=== PATIENT | female | born 2000 | race Caucasian/White ===

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

== ENCOUNTER 2022-05-09 16:51 | Emergency (ER) | payer BC ==
[2022-05-09] MEDS ORDERED: Ondansetron 4 MG/2 ML SDV IVPUSH ONE ×2 (17:12→20:45)
[2022-05-09] MEDS ORDERED: Sodium Chloride 0.9% 1,000 ML IV SCH (17:15)
[2022-05-09] MEDS ORDERED: HYDROmorphone 0.5 MG/0.5 ML Syringe IVPUSH ONE (17:49)
[2022-05-09] MEDS: Sodium Chloride 0.9% 10 ML Syringe FLUSH PRN ×2 (17:57→19:28)
[2022-05-09 18:15] LABS: ESTIMATED GFR 127 mL/min (>60)
[2022-05-09] MEDS ORDERED: Morphine 2 MG/ML SYRINGE IVPUSH ONE (18:35)
[2022-05-09] MEDS ORDERED: Sodium Chloride 0.9% 10 ML SDV FLUSH ONE (19:04)
[2022-05-09] MEDS ORDERED: Iopamidol 755 Mg/ML 100 ML Bottle IVPUSH ONE (19:04)
[2022-05-09] MEDS ORDERED: fentaNYL 100 MCG/2 ML SDV IVPUSH ONE (19:49)
[2022-05-09] MEDS ORDERED: Ketorolac 30 MG/ML SDV IVPUSH ONE (19:49)
[2022-05-09] MEDS ORDERED: Acetaminophen/oxyCODONE 325-5 MG Tab PO ONE (22:33)
== END 2022-05-09 22:35 | disposition home or self-care (01) ==
LOC: JD.ED 16:51
DX: R10.2 Pelvic and perineal pain (principal); Z88.0 Allergy status to penicillin
CPT/HCPCS: 36415; 74177; 76830; 80053; 81001; 83690; 83735; 84702; 85025; 86140; 87086; 96361; 96374; 96375; 96376; 99284; A9270; J1170; J1885; J2270; J2405; J3010; J3490; J7030; Q9967

== ENCOUNTER 2022-06-13 14:22 | Emergency (ER) | payer BC ==
[2022-06-13] MEDS ORDERED: HYDROmorphone 0.5 MG/0.5 ML Syringe IVPUSH ONE (14:48)
[2022-06-13] MEDS ORDERED: Dexamethasone 10 MG/ML SDV IVPUSH ONE (14:48)
[2022-06-13] MEDS ORDERED: Clindamycin Phosphate in D5W 900 MG in Premix Bag 1 BAG IV ONE ×2 (14:48)
[2022-06-13] MEDS ORDERED: Ondansetron 4 MG/2 ML SDV IVPUSH ONE (15:05)
[2022-06-13] MEDS: Sodium Chloride 0.9% 10 ML Syringe FLUSH PRN ×2 (15:08→16:09)
[2022-06-13] MEDS ORDERED: Sodium Chloride 0.9% 1,000 ML IV ONE ×2 (15:11→15:12)
[2022-06-13] MEDS ORDERED: diphenhydrAMINE 50 MG/ML SDV IVPUSH ONE (15:20)
[2022-06-13] MEDS ORDERED: LORazepam 2 MG/ML SDV IVPUSH ONE (15:29)
[2022-06-13] MEDS ORDERED: Iopamidol 612 MG/ML 100 ML Bottle IVPUSH ONE (16:09)
[2022-06-13] MEDS ORDERED: Ketorolac 30 MG/ML SDV IVPUSH ONE (18:20)
== END 2022-06-13 18:53 | disposition home or self-care (01) ==
LOC: JD.ED 14:22
DX: L03.211 Cellulitis of face (principal); K04.7 Periapical abscess without sinus; J01.20 Acute ethmoidal sinusitis, unspecified; Z88.0 Allergy status to penicillin
CPT/HCPCS: 36415; 70487; 80053; 85025; 86140; 93005; 96365; 96375; 99284; J1100; J1170; J1200; J1885; J2405; J3490; J7030; Q9967; 93010

== ENCOUNTER 2022-09-24 09:57 | Emergency (ER) | payer BC ==
[2022-09-24] MEDS ORDERED: Sodium Chloride 0.9% 10 ML Syringe FLUSH PRN (10:19)
[2022-09-24] MEDS ORDERED: Ondansetron 4 MG/2 ML SDV IVPUSH ONE (10:20)
[2022-09-24] MEDS ORDERED: Sodium Chloride 0.9% 1,000 ML IV STA (10:20)
[2022-09-24] MEDS ORDERED: HYDROmorphone 0.5 MG/0.5 ML Syringe IVPUSH ONE (10:20)
[2022-09-24 11:45] LABS: BASOPHILS ABSOLUTE AUTO 0.03 K/mm3 (0.01-0.08); BASOPHILS PERCENT AUTO 0.3 % (0.1-1.2); EOSINOPHILS ABSOLUTE AUTO 0.13 K/mm3 (0.04-0.36); EOSINOPHILS PERCENT AUTO 1.2 (0.7-5.8); HEMATOCRIT 39.8 % (34.1-44.9); HEMOGLOBIN 13.7 gm/dl (11.2-15.7); IMMATURE GRAN ABSOLUTE AUTO 0.04 K/mm3 (0.00-0.10); IMMATURE GRAN PERCENT AUTO 0.4 % (<=1.0); LYMPHOCYTES ABSOLUTE AUTO 2.49 K/mm3 (1.18-3.74); MEAN CORPUSCULAR HEMOGLOBIN 27.8 pg (25.6-32.2); MEAN CORPUSCULAR HGB CONC 34.4 g/dl (32.2-35.5); MEAN CORPUSCULAR VOLUME 80.9 fl (79.4-94.8); MEAN PLATELET VOLUME 10.4 fl (9.4-12.3); MONOCYTES ABSOLUTE AUTO 0.67 K/mm3 (0.24-0.36); MONOCYTES PERCENT AUTO 6.2 % (4.7-12.5); NEUTROPHILS ABSOLUTE AUTO 7.48 K/mm3 (1.56-6.13); NEUTROPHILS PERCENT AUTO 68.9 % (34.0-71.1); PLATELET COUNT,PLT 340 K/mm3 (182-369); RED BLOOD CELL COUNT 4.92 M/mm3 (3.98-5.22); WHITE BLOOD CELL COUNT,WBC 10.84 K/mm3 (3.98-10.04)
[2022-09-24 12:31] LABS: A/G RATIO 0.9 (1-2); ALBUMIN 3.6 g/dl (3.4-5.0); ANION GAP 12.9 (5-15); BILIRUBIN TOTAL 0.6 mg/dL (0.2-1.0); BUN/CREATININE RATIO 15.7 (14-18); C-REACTIVE PROTEIN 1.2 mg/dL (<1.0); CALCIUM 9.3 mg/dL (8.5-10.1); CREATININE 0.7 mg/dL (0.55-1.02); EST CRCL DRUG DOSING (CG) 124.67 mL/min; POTASSIUM,K 3.9 mEq/L (3.5-5.1); PROTEIN TOTAL,TP 7.8 g/dl (6.4-8.2)
[2022-09-24 13:18] LABS: APPEARANCE,URINE CLEAR (Clear); BILIRUBIN,URINE NEGATIVE (Negative); COLOR,URINE YELLOW (Yellow); GLUCOSE,URINE NEGATIVE (Negative); KETONES,URINE NEGATIVE (Negative); LEUKOCYTE ESTERASE,URINE TRACE (Negative); NITRITE,URINE NEGATIVE (Negative); OCCULT BLOOD,URINE NEGATIVE (Negative); PROTEIN,URINE NEGATIVE (Negative); UROBILINOGEN,URINE 0.2 (0.2-1.0)
[2022-09-24 13:38] LABS: BACTERIA,URINE OCCASIONAL /hpf (FEW); MUCUS,URINE RARE /hpf (FEW); RBC,URINE 0-5 /hpf (0-5); SQUAMOUS EPITHELIAL CELLS,UR 0-5 /hpf (0-5); WBC,URINE 0-5 /hpf (0-5)
== END 2022-09-24 14:00 | disposition home or self-care (01) ==
LOC: JD.ED 09:57
DX: O30.041 Twin pregnancy, dichorionic/diamniotic, first trimester (principal); Z88.0 Allergy status to penicillin
CPT/HCPCS: 36415; 76705; 76817; 80053; 81001; 84702; 85025; 86140; 96374; 99284; J2405; J7030

== ENCOUNTER 2022-11-30 09:20 | Emergency (ER) | payer BC ==
[2022-11-30] MEDS ORDERED: Metoclopramide 10 MG/2 ML SDV IVPUSH ONE (09:45)
[2022-11-30] MEDS ORDERED: Sodium Chloride 0.9% 1,000 ML IV STA (09:45)
[2022-11-30] MEDS ORDERED: Sodium Chloride 0.9% 10 ML Syringe FLUSH PRN (09:45)
[2022-11-30] MEDS ORDERED: Ketorolac 15 MG/ML SDV IVPUSH ONE (09:47)
[2022-11-30] MEDS ORDERED: diphenhydrAMINE 50 MG/ML SDV IVPUSH ONE (09:48)
[2022-11-30 10:02] LABS: BASOPHILS PERCENT AUTO 0.3 % (0.0-1.0); EOSINOPHILS ABSOLUTE AUTO 0.1 K/mm3 (0.0-0.4); EOSINOPHILS PERCENT AUTO 0.8 % (0.0-6.0); HEMATOCRIT 37.2 % (37.0-47.0); HEMOGLOBIN 12.4 gm/dl (12.0-16.0); IMMATURE GRAN ABSOLUTE AUTO 0.21 K/mm3 (0.00-0.05); IMMATURE GRAN PERCENT AUTO 1.7 % (0.0-0.4); LYMPHOCYTES PERCENT AUTO 15.4 % (24.0-44.0); MEAN CORPUSCULAR HEMOGLOBIN 27.1 pg (28.0-32.0); MEAN CORPUSCULAR HGB CONC 33.3 g/dl (32.0-36.0); MEAN CORPUSCULAR VOLUME 81.4 fl (83.0-99.0); MEAN PLATELET VOLUME 10.1 fl (9.4-12.3); MONOCYTES ABSOLUTE AUTO 0.6 K/mm3 (0.0-0.8); MONOCYTES PERCENT AUTO 4.9 % (0.0-8.0); NEUTROPHILS ABSOLUTE AUTO 9.8 K/mm3 (1.8-7.7); NEUTROPHILS PERCENT AUTO 76.9 % (41.0-71.0); PLATELET COUNT,PLT 249 K/mm3 (150-400); RED BLOOD CELL COUNT 4.57 M/mm3 (4.10-5.30)
[2022-11-30 10:08] LABS: A/G RATIO 0.7 (1-2); ALBUMIN 3.1 g/dl (3.4-5.0); ANION GAP 15.5 (5-15); BILIRUBIN TOTAL 0.5 mg/dL (0.2-1.0); BUN/CREATININE RATIO 8.6 (14-18); CALCIUM 9.4 mg/dL (8.5-10.1); CREATININE 0.7 mg/dL (0.55-1.02); EST CRCL DRUG DOSING (CG) 124.67 mL/min; POTASSIUM,K 3.5 mEq/L (3.5-5.1); PROTEIN TOTAL,TP 7.4 g/dl (6.4-8.2)
[2022-11-30 11:59] LABS: APPEARANCE,URINE SLT CLOUDY (Clear); BILIRUBIN,URINE NEGATIVE (Negative); COLOR,URINE DARK YELLOW (Yellow); GLUCOSE,URINE NEGATIVE (Negative); KETONES,URINE 2+ (Negative); LEUKOCYTE ESTERASE,URINE TRACE (Negative); NITRITE,URINE NEGATIVE (Negative); OCCULT BLOOD,URINE NEGATIVE (Negative); PROTEIN,URINE NEGATIVE (Negative); UROBILINOGEN,URINE 0.2 (0.2-1.0)
[2022-11-30 12:13] LABS: BACTERIA,URINE FEW /hpf (FEW); MUCUS,URINE MANY /hpf (FEW); RBC,URINE 0-5 /hpf (0-5)
== END 2022-11-30 12:58 | disposition home or self-care (01) ==
LOC: JD.ED 09:20
DX: O21.9 Vomiting of pregnancy, unspecified (principal); Z3A.16 16 weeks gestation of pregnancy; Z88.0 Allergy status to penicillin
CPT/HCPCS: 36415; 80053; 81001; 85025; 96361; 96374; 96375; 99284; J1200; J1885; J2765; J7030

== ENCOUNTER 2022-12-26 18:44 | Emergency (ER) | payer BC ==
[2022-12-26 19:50] LABS: BASOPHILS PERCENT AUTO 0.3 % (0.0-1.0); EOSINOPHILS ABSOLUTE AUTO 0.2 K/mm3 (0.0-0.4); EOSINOPHILS PERCENT AUTO 1.4 % (0.0-6.0); HEMATOCRIT 31.7 % (37.0-47.0); HEMOGLOBIN 10.9 gm/dl (12.0-16.0); IMMATURE GRAN ABSOLUTE AUTO 0.34 K/mm3 (0.00-0.05); IMMATURE GRAN PERCENT AUTO 2.7 % (0.0-0.4); LYMPHOCYTES ABSOLUTE AUTO 2.1 K/mm3 (1.0-4.8); LYMPHOCYTES PERCENT AUTO 17.2 % (24.0-44.0); MEAN CORPUSCULAR HEMOGLOBIN 28.5 pg (28.0-32.0); MEAN CORPUSCULAR HGB CONC 34.4 g/dl (32.0-36.0); MEAN CORPUSCULAR VOLUME 82.8 fl (83.0-99.0); MEAN PLATELET VOLUME 10.5 fl (9.4-12.3); MONOCYTES ABSOLUTE AUTO 0.8 K/mm3 (0.0-0.8); MONOCYTES PERCENT AUTO 6.7 % (0.0-8.0); NEUTROPHILS ABSOLUTE AUTO 8.9 K/mm3 (1.8-7.7); NEUTROPHILS PERCENT AUTO 71.7 % (41.0-71.0); PLATELET COUNT,PLT 225 K/mm3 (150-400); RED BLOOD CELL COUNT 3.83 M/mm3 (4.10-5.30); WHITE BLOOD CELL COUNT,WBC 12.47 K/mm3 (3.9-11.3)
[2022-12-26 19:58] LABS: A/G RATIO 0.7 (1-2); ALBUMIN 2.8 g/dl (3.4-5.0); ANION GAP 14.5 (5-15); BILIRUBIN TOTAL 0.3 mg/dL (0.2-1.0); C-REACTIVE PROTEIN 1.2 mg/dL (<1.0); CALCIUM 8.9 mg/dL (8.5-10.1); CREATININE 0.5 mg/dL (0.55-1.02); EST CRCL DRUG DOSING (CG) 174.53 mL/min; POTASSIUM,K 3.5 mEq/L (3.5-5.1)
[2022-12-26 20:03] LABS: APPEARANCE,URINE CLEAR (Clear); BILIRUBIN,URINE NEGATIVE (Negative); COLOR,URINE LIGHT YELLOW (Yellow); GLUCOSE,URINE NEGATIVE (Negative); KETONES,URINE NEGATIVE (Negative); LEUKOCYTE ESTERASE,URINE NEGATIVE (Negative); NITRITE,URINE NEGATIVE (Negative); OCCULT BLOOD,URINE NEGATIVE (Negative); PROTEIN,URINE NEGATIVE (Negative); UROBILINOGEN,URINE 0.2 (0.2-1.0)
== END 2022-12-26 21:15 | disposition home or self-care (01) ==
LOC: JD.ED 18:44
DX: O99.891 Other specified diseases and conditions complicating pregnancy (principal); R10.31 Right lower quadrant pain; O99.711 Diseases of the skin and subcutaneous tissue complicating pregnancy, first trimester; L98.8 Other specified disorders of the skin and subcutaneous tissue; Z88.0 Allergy status to penicillin; Z3A.19 19 weeks gestation of pregnancy
CPT/HCPCS: 36415; 76705; 76705-26; 76815; 76815-26; 80053; 81003; 85025; 86140; 99283; 99284

== ENCOUNTER 2023-10-30 08:07 | Day surgery (SDC) | payer BC ==
[~2023-10-30 08:07] MED LIST: Sodium Chloride 0.9% 10 ML Syringe FLUSH PRN
[2023-10-30] MEDS: Lactated Ringers 1,000 ML IV SCH (08:35)
[2023-10-30] MEDS ORDERED: Sodium Chloride 0.9% 10 ML Syringe FLUSH SCH (09:00)
[2023-10-30] MEDS ORDERED: Lidocaine 1% 4 ML ONE (09:15)
[2023-10-30] MEDS ORDERED: Lidocaine 1% 5 ML VIAL ONE ×2 (09:15)
[2023-10-30] MEDS ORDERED: Propofol 200 MG/20 ML SDV ONE ×5 (09:15→10:17)
[2023-10-30] MEDS ORDERED: fentaNYL 100 MCG/2 ML SDV ONE (09:15)
[2023-10-30] MEDS ORDERED: Midazolam 1 MG/ML 2 ML SDV ONE (09:15)
[2023-10-30] MEDS: Bupivacaine 0.5% 30 ML SDV ONE (11:07)
[2023-10-30] MEDS: Citric Acid/Sodium Citrate Solution 30 ML Cup PO ONE (11:26)
== END 2023-10-30 12:15 | disposition home or self-care (01) ==
LOC: JD.SDS 08:07
PROVIDERS: ATTEND Surgery
DX: K29.51 Unspecified chronic gastritis with bleeding (principal); K21.01 Gastro-esophageal reflux disease with esophagitis, with bleeding; K63.5 Polyp of colon; K64.8 Other hemorrhoids; K64.4 Residual hemorrhoidal skin tags; D3A.8 Other benign neuroendocrine tumors; K22.70 Barrett's esophagus without dysplasia; F41.9 Anxiety disorder, unspecified; Z79.899 Other long term (current) drug therapy
CPT/HCPCS: 00813; 81025; A9270-GY; J0665; J2250; J2704; J3010; J3490; J7120

== ENCOUNTER 2023-11-06 15:34 | Emergency (ER) | payer BC ==
[2023-11-06] MEDS: Iopamidol 755 Mg/ML 100 ML Bottle IVPUSH ONE (16:45)
[2023-11-06] MEDS: Sodium Chloride 0.9% 10 ML Syringe FLUSH ONE (16:45)
[2023-11-06 16:46] LABS: BASOPHILS PERCENT AUTO 0.4 % (0.0-1.0); EOSINOPHILS ABSOLUTE AUTO 0.4 K/mm3 (0.0-0.4); HEMATOCRIT 38.9 % (37.0-47.0); HEMOGLOBIN 12.6 gm/dl (12.0-16.0); IMMATURE GRAN ABSOLUTE AUTO 0.02 K/mm3 (0.00-0.05); IMMATURE GRAN PERCENT AUTO 0.3 % (0.0-0.4); LYMPHOCYTES ABSOLUTE AUTO 2.2 K/mm3 (1.0-4.8); LYMPHOCYTES PERCENT AUTO 30.8 % (24.0-44.0); MEAN CORPUSCULAR HEMOGLOBIN 25.1 pg (28.0-32.0); MEAN CORPUSCULAR HGB CONC 32.4 g/dl (32.0-36.0); MEAN CORPUSCULAR VOLUME 77.6 fl (83.0-99.0); MEAN PLATELET VOLUME 10.9 fl (9.4-12.3); MONOCYTES ABSOLUTE AUTO 0.6 K/mm3 (0.0-0.8); MONOCYTES PERCENT AUTO 8.7 % (0.0-8.0); NEUTROPHILS ABSOLUTE AUTO 3.8 K/mm3 (1.8-7.7); NEUTROPHILS PERCENT AUTO 53.8 % (41.0-71.0); PLATELET COUNT,PLT 305 K/mm3 (150-400); RED BLOOD CELL COUNT 5.01 M/mm3 (4.10-5.30); WHITE BLOOD CELL COUNT,WBC 7.01 K/mm3 (3.9-11.3)
[2023-11-06] MEDS: Sodium Chloride 0.9% 1,000 ML IV ONE (17:12)
[2023-11-06 17:47] LABS: A/G RATIO 0.9 (1-2); ALBUMIN 3.5 g/dl (3.4-5.0); ANION GAP 13.6 (5-15); BILIRUBIN TOTAL 0.5 mg/dL (0.2-1.0); BUN/CREATININE RATIO 13.3 (14-18); C-REACTIVE PROTEIN 0.88 mg/dL (<0.30); CALCIUM 9.4 mg/dL (8.5-10.1); CREATININE 0.9 mg/dL (0.55-1.02); EST CRCL DRUG DOSING (CG) 99.74 mL/min; POTASSIUM,K 3.6 mEq/L (3.5-5.1); PROTEIN TOTAL,TP 7.6 g/dl (6.4-8.2)
[2023-11-06] MEDS: Dicyclomine 10 MG Cap PO ONE (19:37)
== END 2023-11-06 19:42 | disposition home or self-care (01) ==
LOC: JD.ED 15:34
DX: R10.84 Generalized abdominal pain (principal); R42 Dizziness and giddiness; R06.02 Shortness of breath; R11.0 Nausea; K21.9 Gastro-esophageal reflux disease without esophagitis; Z86.16 Personal history of COVID-19; Z79.899 Other long term (current) drug therapy; Z88.0 Allergy status to penicillin
CPT/HCPCS: 36415; 74177; 80053; 83690; 85025; 86140; 96360; 96361; 99284; A9270; J3490; J7030; Q9967

== ENCOUNTER 2023-11-23 12:51 | Emergency (ER) | payer BC ==
[2023-11-23] MEDS: Ondansetron 4 MG/2 ML SDV IVPUSH ONE (14:18)
[2023-11-23] MEDS: HYDROmorphone 0.5 MG/0.5 ML Syringe IVPUSH ONE (14:18)
[2023-11-23 14:20] LABS: BASOPHILS PERCENT AUTO 0.5 % (0.0-1.0); EOSINOPHILS ABSOLUTE AUTO 1.5 K/mm3 (0.0-0.4); EOSINOPHILS PERCENT AUTO 18.1 % (0.0-6.0); HEMATOCRIT 39.2 % (37.0-47.0); HEMOGLOBIN 12.7 gm/dl (12.0-16.0); IMMATURE GRAN ABSOLUTE AUTO 0.03 K/mm3 (0.00-0.05); IMMATURE GRAN PERCENT AUTO 0.4 % (0.0-0.4); LYMPHOCYTES ABSOLUTE AUTO 2.4 K/mm3 (1.0-4.8); LYMPHOCYTES PERCENT AUTO 28.5 % (24.0-44.0); MEAN CORPUSCULAR HEMOGLOBIN 25.3 pg (28.0-32.0); MEAN CORPUSCULAR HGB CONC 32.4 g/dl (32.0-36.0); MEAN CORPUSCULAR VOLUME 78.2 fl (83.0-99.0); MEAN PLATELET VOLUME 10.9 fl (9.4-12.3); MONOCYTES ABSOLUTE AUTO 0.6 K/mm3 (0.0-0.8); MONOCYTES PERCENT AUTO 6.9 % (0.0-8.0); NEUTROPHILS ABSOLUTE AUTO 3.8 K/mm3 (1.8-7.7); NEUTROPHILS PERCENT AUTO 45.6 % (41.0-71.0); PLATELET COUNT,PLT 305 K/mm3 (150-400); RED BLOOD CELL COUNT 5.01 M/mm3 (4.10-5.30); WHITE BLOOD CELL COUNT,WBC 8.29 K/mm3 (3.9-11.3)
[2023-11-23] MEDS: Sodium Chloride 0.9% 10 ML Syringe FLUSH PRN (14:20)
[2023-11-23] MEDS: Sodium Chloride 0.9% 1,000 ML IV ONE (14:20)
[2023-11-23 14:50] LABS: A/G RATIO 0.8 (1-2); ALBUMIN 3.3 g/dl (3.4-5.0); ANION GAP 13.6 (5-15); BILIRUBIN TOTAL 0.6 mg/dL (0.2-1.0); BUN/CREATININE RATIO 13.3 (14-18); C-REACTIVE PROTEIN 0.92 mg/dL (<0.30); CALCIUM 9.4 mg/dL (8.5-10.1); CREATININE 0.9 mg/dL (0.55-1.02); EST CRCL DRUG DOSING (CG) 99.74 mL/min; MAGNESIUM 1.8 mg/dL (1.8-2.4); POTASSIUM,K 3.6 mEq/L (3.5-5.1); PROTEIN TOTAL,TP 7.4 g/dl (6.4-8.2)
[2023-11-23 16:07] LABS: APPEARANCE,URINE CLEAR (Clear); BILIRUBIN,URINE NEGATIVE (Negative); COLOR,URINE YELLOW (Yellow); GLUCOSE,URINE NEGATIVE (Negative); KETONES,URINE NEGATIVE (Negative); LEUKOCYTE ESTERASE,URINE NEGATIVE (Negative); NITRITE,URINE NEGATIVE (Negative); OCCULT BLOOD,URINE NEGATIVE (Negative); PROTEIN,URINE NEGATIVE (Negative); UROBILINOGEN,URINE 0.2 (0.2-1.0)
[2023-11-23] MEDS: Metoclopramide 10 MG/2 ML SDV IVPUSH ONE (17:34)
[2023-11-23] MEDS: Ketorolac 30 MG/ML SDV IVPUSH ONE (17:34)
[2023-11-23] MEDS: diphenhydrAMINE 50 MG/ML SDV IVPUSH ONE (17:35)
== END 2023-11-23 18:00 | disposition home or self-care (01) ==
LOC: JD.ED 12:51
DX: R10.84 Generalized abdominal pain (principal); K21.9 Gastro-esophageal reflux disease without esophagitis; Z86.16 Personal history of COVID-19; Z79.899 Other long term (current) drug therapy; Z88.0 Allergy status to penicillin
CPT/HCPCS: 36415; 70450; 80053; 81003; 83690; 83735; 84703; 85025; 86140; 96361; 96374; 96375; 99284; J1170; J1885; J2405; J2765; J3490; J7030; J1200

== ENCOUNTER 2024-02-17 07:12 | Day surgery (SDC) | payer BC ==
[~2024-02-17 07:12] MED LIST changes: +Lidocaine 1% 4 ML ONE; +Midazolam 1 MG/ML 2 ML SDV ONE; +Propofol 200 MG/20 ML SDV ONE; +Sodium Chloride 0.9% 10 ML Syringe FLUSH SCH
[2024-02-17] MEDS: Lactated Ringers 1,000 ML IV SCH (07:50)
== END 2024-02-17 09:30 | disposition home or self-care (01) ==
LOC: JD.SDS 07:12
PROVIDERS: ATTEND Surgery
DX: R11.2 Nausea with vomiting, unspecified (principal); K92.1 Melena; C7A.8 Other malignant neuroendocrine tumors; F41.9 Anxiety disorder, unspecified
CPT/HCPCS: 00731; 81025; J2250; J2704; J3490; J7120

== ENCOUNTER 2024-07-30 07:00 | Day surgery (SDC) | payer BC ==
[~2024-07-30 07:00] MED LIST changes: -Lidocaine 1% 4 ML ONE; -Midazolam 1 MG/ML 2 ML SDV ONE; -Propofol 200 MG/20 ML SDV ONE
[2024-07-30] MEDS: Lactated Ringers 1,000 ML IV SCH (07:25)
[2024-07-30] MEDS ORDERED: Propofol 200 MG/20 ML SDV ONE ×2 (07:57→08:11)
[2024-07-30] MEDS ORDERED: Lidocaine 2% 5 ML SDV ONE (07:57)
== END 2024-07-30 09:48 | disposition home or self-care (01) ==
LOC: JD.SDS 07:00
PROVIDERS: ATTEND Surgery
DX: K29.51 Unspecified chronic gastritis with bleeding (principal); K21.9 Gastro-esophageal reflux disease without esophagitis; K64.4 Residual hemorrhoidal skin tags; D3A.8 Other benign neuroendocrine tumors; Z79.899 Other long term (current) drug therapy; Z88.0 Allergy status to penicillin
CPT/HCPCS: 43239; 45378; 81025; J2003; J2704; J7120; 00813